=== PATIENT | female | born 1985 | race Hispanic/Latino ===

== ENCOUNTER 2021-05-09 07:31 | Emergency (ER) | payer OTHER ==
[~2021-05-09] VITALS: Ht 160 cm; Wt 67.1 kg
[2021-05-09 09:23] VITALS: BP 118/64
[2021-05-09] MEDS ORDERED: LIDOCAINE HCL 1% 20 ML VIAL ONE (10:14)
== END 2021-05-09 11:16 | disposition home or self-care (01) ==
LOC: EDH 07:31
DX: T16.1XXA Foreign body in right ear, initial encounter (principal); X58.XXXA Exposure to other specified factors, initial encounter; Y93.89 Activity, other specified; Y92.89 Other specified places as the place of occurrence of the external cause; Y99.8 Other external cause status
CPT/HCPCS: 69200